=== PATIENT | female | born 1970 | race Hispanic/Latino ===

== ENCOUNTER 2017-05-14 17:17 | Emergency (ER) | payer MEDICAID ==
[~2017-05-14 17:17] MED LIST: OMEP40CA37 PO; OXCA300T46 PO; RISP1TAB89 PO; TRAM-355 PO; TRAZ150T79 PO; TYL3 PO; [UNRECOGNIZED DRUG - OTHER] PO
[2017-05-14] MEDS ORDERED: GUAIFENESIN-CODEINE 5 ML SYRUP ONE (17:46)
[2017-05-14] MEDS ORDERED: DEXAMETHASONE SOD PHOSPHATE 10MG/ML 1ML VIAL ONE (17:46)
[2017-05-14] MEDS ORDERED: IPRATROPIUM/ALBUTEROL SULFATE 3 ML SOLUTION IH ONE (18:04)
== END 2017-05-14 18:37 | disposition home or self-care (01) ==
LOC: EDH 17:17
DX: J20.9 Acute bronchitis, unspecified (principal); Z72.0 Tobacco use
CPT/HCPCS: 94640; 96372; 99283; J1100

== ENCOUNTER 2018-01-15 20:29 | Emergency (ER) | payer MEDICAID ==
[2018-01-15] MEDS ORDERED: DiphenhydrAMINE HCL 50 MG/ML VIAL ONE (21:08)
[2018-01-15] MEDS ORDERED: METOCLOPRAMIDE 10 MG/2 ML VIAL ONE (21:08)
[2018-01-15] MEDS ORDERED: SODIUM CHLORIDE 0.9% 1000ML 1,000 ML IV ONE (21:09)
[2018-01-15 21:13] LABS: BASOPHILS % (AUTO) 0.3 % (0.0-5.0); EOSINOPHILS % (AUTO) 1.8 % (0.0-8.0); HEMATOCRIT 39.7 % (36-48); LYMPHOCYTES % (AUTO) 42.4 % (21.0-51.0); MEAN CORPUSCULAR HEMOGLOBIN 31.8 pg (27.0-33.0); MEAN CORPUSCULAR HGB CONC 33.3 g/dL (32.0-36.0); MEAN CORPUSCULAR VOLUME 95.3 fL (79-99); MONOCYTES % (AUTO) 3.9 % (3.0-13.0); NEUTROPHILS % (AUTO) 51.6 % (40.0-77.0); NUCLEATED RED BLOOD CELLS 0.1 % (0.0-0.19); PLATELET COUNT (AUTO) 172 K/uL (130-400); RED BLOOD CELL COUNT(AUTO) 4.17 MIL/uL (4.00-5.50); RED CELL DISTRIBUTION WIDTH 13.8 % (11.0-15.5); WHITE BLOOD COUNT (AUTO) 6.4 K/uL (4.8-10.8)
[2018-01-15 21:26] LABS: CREATININE 0.7 mg/dL (0.5-1.5); POTASSIUM 4.3 mmol/L (3.5-5.1)
== END 2018-01-15 22:12 | disposition home or self-care (01) ==
LOC: EDH 20:29
DX: R51 Headache (principal); R11.0 Nausea; F41.9 Anxiety disorder, unspecified; F31.9 Bipolar disorder, unspecified; Z90.710 Acquired absence of both cervix and uterus; Z98.890 Other specified postprocedural states; Z72.0 Tobacco use
CPT/HCPCS: 36415; 80048; 85025; 96374; 96375; 99284; J1200; J2765; J7030

== ENCOUNTER 2018-07-25 12:06 | Emergency (ER) | payer MEDICAID ==
[2018-07-25 12:28] LABS: APPEARANCE,URINE Clear (CLEAR); BILIRUBIN,URINE Negative (NEGATIVE); COLOR,URINE Yellow (YELLOW); GLUCOSE, URINE (UA) Negative (NEGATIVE); KETONES,URINE Negative (NEGATIVE); LEUKOCYTE ESTERASE ,URINE Negative (NEGATIVE); NITRATE,URINE Negative (NEGATIVE); OCCULT BLOOD,URINE Nonhemolyzed Trace (NEGATIVE); PH,URINE 7.5 (5.0-8.0); PROTEIN,URINE Negative (NEGATIVE)
[2018-07-25 12:43] LABS: BASOPHILS % (AUTO) 0.4 % (0.0-5.0); EOSINOPHILS % (AUTO) 0.9 % (0.0-8.0); HEMATOCRIT 41.4 % (36-48); LYMPHOCYTES % (AUTO) 24.1 % (21.0-51.0); MEAN CORPUSCULAR HGB CONC 34.3 g/dL (32.0-36.0); MEAN CORPUSCULAR VOLUME 90.4 fL (79-99); MONOCYTES % (AUTO) 4.1 % (3.0-13.0); NEUTROPHILS % (AUTO) 70.5 % (40.0-77.0); NUCLEATED RED BLOOD CELLS 0.1 % (0.0-0.19); PLATELET COUNT (AUTO) 254 K/uL (130-400); RED BLOOD CELL COUNT(AUTO) 4.58 MIL/uL (4.00-5.50); RED CELL DISTRIBUTION WIDTH 12.8 % (11.0-15.5); WHITE BLOOD COUNT (AUTO) 8.4 K/uL (4.8-10.8)
[2018-07-25 12:52] LABS: BACTERIA,URINE Few /HPF (None Seen); WBC,URINE 0-1 /HPF (0-1)
[2018-07-25 12:52] LABS: CREATININE 0.7 mg/dL (0.5-1.5); POTASSIUM 4.4 mmol/L (3.5-5.1)
[2018-07-25 12:53] LABS: MUCUS,URINE Few LPF (None Seen)
[2018-07-25] MEDS ORDERED: ONDANSETRON HCL 4 MG/2 ML VIAL ONE (12:53)
[2018-07-25] MEDS ORDERED: MORPHINE SULFATE 2 MG/ML 1ML SYG ONE (12:53)
[2018-07-25 12:57] LABS: ALBUMIN 3.9 g/dL (3.5-5.0); BILIRUBIN,TOTAL 0.5 mg/dL (0.2-1.0)
[2018-07-25] MEDS ORDERED: IOHEXOL-350 75 ML VIAL IV ONE (12:59)
[2018-07-25 13:05] LABS: AMPHET/METH SCREEN,URINE NEGATIVE (NEGATIVE); BARBITURATE SCREEN, URINE NEGATIVE (NEGATIVE); BENZODIAZEPINES SCREEN,URINE NEGATIVE (NEGATIVE); CANNABINOID SCREEN,URINE NEGATIVE (NEGATIVE); COCAINE SCREEN,URINE NEGATIVE (NEGATIVE); OPIATE SCREEN,URINE NEGATIVE (NEGATIVE); PHENCYCLIDINE SCREEN,URINE NEGATIVE (NEGATIVE)
== END 2018-07-25 14:18 | disposition home or self-care (01) ==
LOC: EDH 12:06
DX: K59.00 Constipation, unspecified (principal); R10.31 Right lower quadrant pain; F32.9 Major depressive disorder, single episode, unspecified; F41.9 Anxiety disorder, unspecified; Z90.710 Acquired absence of both cervix and uterus; Z98.890 Other specified postprocedural states; Z72.0 Tobacco use
CPT/HCPCS: 36415; 74177; 80053; 80305; 81001; 85025; 93005; 96374; 96375; 99285; J2405; Q9967

== ENCOUNTER 2018-09-10 23:30 | Emergency (ER) | payer MEDICAID ==
[2018-09-11] MEDS ORDERED: KETOROLAC TROMETHAMINE 30MG/ML ONE (00:48)
[2018-09-11] MEDS ORDERED: SODIUM CHLORIDE 0.9% 1000ML 1,000 ML IV ONE (00:49)
[2018-09-11 00:55] LABS: BASOPHILS % (AUTO) 0.6 % (0.0-5.0); EOSINOPHILS % (AUTO) 1.4 % (0.0-8.0); HEMATOCRIT 38.1 % (36-48); LYMPHOCYTES % (AUTO) 36.3 % (21.0-51.0); MEAN CORPUSCULAR HEMOGLOBIN 30.4 pg (27.0-33.0); MEAN CORPUSCULAR VOLUME 89.3 fL (79-99); NEUTROPHILS % (AUTO) 56.7 % (40.0-77.0); PLATELET COUNT (AUTO) 268 K/uL (130-400); RED BLOOD CELL COUNT(AUTO) 4.27 MIL/uL (4.00-5.50); RED CELL DISTRIBUTION WIDTH 13.5 % (11.0-15.5); WHITE BLOOD COUNT (AUTO) 7.4 K/uL (4.8-10.8)
[2018-09-11 01:01] LABS: APPEARANCE,URINE Clear (CLEAR); BILIRUBIN,URINE Negative (NEGATIVE); COLOR,URINE Yellow (YELLOW); GLUCOSE, URINE (UA) Negative (NEGATIVE); KETONES,URINE Negative (NEGATIVE); LEUKOCYTE ESTERASE ,URINE Negative (NEGATIVE); NITRATE,URINE Negative (NEGATIVE); OCCULT BLOOD,URINE Negative (NEGATIVE); PROTEIN,URINE Negative (NEGATIVE)
[2018-09-11 01:11] LABS: BILIRUBIN,TOTAL 0.5 mg/dL (0.2-1.0); CREATININE 0.7 mg/dL (0.5-1.5); TOTAL PROTEIN, SERUM 6.6 g/dL (6.0-8.3)
[2018-09-11] MEDS ORDERED: IOHEXOL-350 75 ML VIAL IV ONE (01:17)
[2018-09-11] MEDS ORDERED: LEVOFLOXACIN 500 MG/D5W 100 ML 100 ML ONE (02:20)
[2018-09-11] MEDS ORDERED: METRONIDAZOLE 500 MG TABLET ONE (02:20)
[2018-09-11] MEDS ORDERED: METRONIDAZOLE 500MG/100ML BAG 100 ML ONE (02:25)
== END 2018-09-11 02:49 | disposition home or self-care (01) ==
LOC: EDH 23:30
DX: K57.92 Diverticulitis of intestine, part unspecified, without perforation or abscess without bleeding (principal); F32.9 Major depressive disorder, single episode, unspecified; F41.9 Anxiety disorder, unspecified; Z72.0 Tobacco use; Z90.710 Acquired absence of both cervix and uterus; Z98.890 Other specified postprocedural states
CPT/HCPCS: 36415; 74177; 80053; 81003; 82550; 83605; 83690; 85025; 96365; 96375; 99285; J1885; J1956; J3490; J7030; Q9967

== ENCOUNTER 2019-01-10 21:26 | Emergency (ER) | payer MEDICAID ==
[~2019-01-10 21:26] MED LIST changes: +OMEP40CA13 PO; -OMEP40CA37 PO
[2019-01-10 21:56] LABS: APPEARANCE,URINE Clear (CLEAR); BASOPHILS % (AUTO) 0.3 % (0.0-5.0); BILIRUBIN,URINE Negative (NEGATIVE); COLOR,URINE Dark Yellow (YELLOW); EOSINOPHILS % (AUTO) 1.4 % (0.0-8.0); GLUCOSE, URINE (UA) Negative (NEGATIVE); HEMATOCRIT 39.5 % (36-48); KETONES,URINE Negative (NEGATIVE); LEUKOCYTE ESTERASE ,URINE Negative (NEGATIVE); LYMPHOCYTES % (AUTO) 47.2 % (21.0-51.0); MEAN CORPUSCULAR HEMOGLOBIN 30.2 pg (27.0-33.0); MEAN CORPUSCULAR HGB CONC 33.6 g/dL (32.0-36.0); MEAN CORPUSCULAR VOLUME 89.8 fL (79-99); MONOCYTES % (AUTO) 6.6 % (3.0-13.0); NEUTROPHILS % (AUTO) 44.5 % (40.0-77.0); NITRATE,URINE Negative (NEGATIVE); NUCLEATED RED BLOOD CELLS 0.1 % (0.0-0.19); OCCULT BLOOD,URINE Trace (NEGATIVE); PH,URINE 5.5 (5.0-8.0); PLATELET COUNT (AUTO) 234 K/uL (130-400); PROTEIN,URINE Negative (NEGATIVE); RED CELL DISTRIBUTION WIDTH 13.4 % (11.0-15.5); WHITE BLOOD COUNT (AUTO) 6.2 K/uL (4.8-10.8)
[2019-01-10 22:03] LABS: BACTERIA,URINE Rare /HPF (None Seen); WBC,URINE 0-1 /HPF (0-1)
[2019-01-10 22:04] LABS: MUCUS,URINE Few LPF (None Seen); SQUAMOUS EPITHELIAL CELL,UR Few /HPF (0-2)
[2019-01-10 22:05] LABS: YEAST,URINE BUDDING Rare /HPF (None Seen)
[2019-01-10 22:22] LABS: INR 0.93 (0.85-1.15); PARTIAL THROMBOPLASTIN TIME 28.2 SEC (26.3-35.5); PROTHROMBIN TIME 9.8 SEC (9.6-11.6)
[2019-01-10] MEDS ORDERED: METOCLOPRAMIDE 10 MG/2 ML VIAL ONE (22:43)
[2019-01-10] MEDS ORDERED: FAMOTIDINE/PF 20 MG/2 ML VIAL IV ONE (22:44)
[2019-01-10] MEDS ORDERED: SODIUM CHLORIDE 0.9% 1000ML 1,000 ML IV ONE (22:44)
[2019-01-10 23:01] LABS: CREATININE 0.8 mg/dL (0.5-1.5); POTASSIUM 4.3 mmol/L (3.5-5.1)
[2019-01-10 23:06] LABS: ALBUMIN 4.5 g/dL (3.5-5.0); BILIRUBIN,TOTAL 0.4 mg/dL (0.2-1.0); TOTAL PROTEIN, SERUM 7.5 g/dL (6.0-8.3)
[2019-01-10] MEDS ORDERED: IOHEXOL-350 75 ML VIAL IV ONE (23:07)
[2019-01-10] MEDS ORDERED: KETOROLAC TROMETHAMINE 30MG/ML ONE (23:13)
[2019-01-11] MEDS ORDERED: DiphenhydrAMINE HCL 50 MG/ML VIAL ONE (00:30)
[2019-01-11 00:42] LABS: AMPHET/METH SCREEN,URINE NEGATIVE (NEGATIVE); BARBITURATE SCREEN, URINE NEGATIVE (NEGATIVE); BENZODIAZEPINES SCREEN,URINE NEGATIVE (NEGATIVE); CANNABINOID SCREEN,URINE NEGATIVE (NEGATIVE); COCAINE SCREEN,URINE NEGATIVE (NEGATIVE); OPIATE SCREEN,URINE NEGATIVE (NEGATIVE); PHENCYCLIDINE SCREEN,URINE NEGATIVE (NEGATIVE)
== END 2019-01-11 00:49 | disposition home or self-care (01) ==
LOC: EDH 21:26
DX: E86.9 Volume depletion, unspecified (principal); R10.31 Right lower quadrant pain; F41.9 Anxiety disorder, unspecified; F31.9 Bipolar disorder, unspecified; Z90.710 Acquired absence of both cervix and uterus; Z98.890 Other specified postprocedural states
CPT/HCPCS: 36415; 74177; 80053; 80305; 81001; 83605; 83690; 85025; 85610; 85730; 96361; 96374; 96375; 99285; J1200; J1885; J2765; J3490; J7030; Q9967

== ENCOUNTER 2024-12-14 12:39 | Emergency (ER) | payer MEDICAID ==
[~2024-12-14] VITALS: Ht 147.3 cm; Wt 59.4 kg
[~2024-12-14 12:39] MED LIST changes: -OMEP40CA13 PO; +OMEP40CA21 PO; -TRAM-355 PO; +TRAM-543 PO
--- NOTE | 2024-12-14 12:50 | ERN ---
ED Note History of Present Illness Stated Complaint: LT BREAST PAIN Chief Complaint: Breast Problem Time Seen by MD: 12:43 Dictation: PATIENT IS A 54-YEAR-OLD FEMALE COMING IN TODAY WITH LEFT LATERAL BREAST PAIN THAT IS SPREADING TO HER ARM PIT ONSET WAS LAST MONDAY WHEN SHE TOOK HER BRA. NO NIPPLE DID SWELLING NO SKIN CHANGES NO FEVER NO CHILLS. SHE HAS NOT BEEN TO SEE HER PRIMARY CARE DOCTOR. Allergies: Coded Allergies: No Known Allergies (Unverified Allergy, Unknown, 07/10/14) No Known Drug Allergies (Unverified Allergy, Unknown, 01/11/19) Home Meds Reported Medications Omeprazole (Omeprazole) 40 Mg Capsule.dr, 40 MG PO AM, CAP 08/04/14 Acetaminophen with Codeine (Tylenol with Codeine #3) 1 Tab Tab, 1 TAB PO TID, TAB 08/01/14 Tramadol HCl/Acetaminophen (Tramadol-Acetaminophn 37.5-325) 1 Each Tablet, 1 EACH PO TID, TAB 08/01/14 Risperidone (Risperdal) 1 Mg Tablet, 1 MG PO BID, TAB 07/11/14 Trazodone HCl (Trazodone HCl) 150 Mg Tablet, 150 MG PO HS, TAB 07/11/14 [Vistaril Pamoate] No Conflict Check, 50 MG PO TID 07/11/14 Oxcarbazepine (Trileptal) 300 Mg Tablet, 300 MG PO BID, TAB 07/11/14 Past Medical History Past Medical History: Bipolar, Hypertension Surgical History: None History: Not Applicable RN Note Reviewed/Agreed w/PFSH: Yes Review of System Dictation CONSTITUTIONAL: NEGATIVE EXCEPT FOR HPI HEAD/FACE: NEGATIVE EXCEPT FOR HPI EENT: NEGATIVE EXCEPT FOR HPI RESPIRATORY: NEGATIVE EXCEPT FOR HPI LEFT BREAST PAIN LATERAL GASTROINTESTINAL/ABDOMINAL: NEGATIVE EXCEPT FOR HPI GENITOURINARY: NEGATIVE EXCEPT FOR HPI MUSCULOSKELETAL: NEGATIVE EXCEPT FOR HPI INTEGUMENTARY: NEGATIVE EXCEPT FOR HPI NEUROLOGICAL/PSYCH: NEGATIVE EXCEPT FOR HPI HEMATOLOGIC/LYMPHATIC: NEGATIVE EXCEPT FOR HPI ALL SYSTEMS NEGATIVE, EXCEPT NOTED ABOVE. 13 POINT REVIEW OF SYSTEMS ASSESSED AND ALL NEGATIVE EXCEPT FOR ABOVE. Initial Vital Sign VS Vital Signs Date Time Temp Pulse Resp B/P (MAP) Pulse Ox O2 Delivery O2 Flow Rate FiO2 12/14/24 12:40 98.4 62 20 119/73 99 Room Air 12/14/24 12:56 0 21 Physical Exam Dictation VITAL SIGNS REVIEWED RN IN ROOM WITH THE EXAM IN TRIAGE. GENERAL APPEARANCE: ALERT, ORIENTED X 3, N MODERATE ACUTE DISTRESS, WELL DEVELOPED, NOURISHED. HEAD AND FACE: NON-TRAUMATIC. EYES: PERRL, PINK CONJUNCTIVAS, EYELID NO TRAUMA, ANTERIOR CHAMBER WITH ARCUS SENILIS. EARS: PINNAS INTACT AND NO SIGNS OF TRAUMA OR ERYTHEMA EAR CANALS CLEAR AND NO DISCHARGE TM NO ERYTHEMA NOSE: NO DISCHARGE, NO BLEEDING. OROPHARYNX: MOUTH NORMAL, TONGUE PINK, PHARYNX CLEAR,NO ERYTHEMA, TONSILS NO EXUDATES, NO ABSCESSES NOTED, MUCOUS MEMBRANE MOIST NECK: SUPPLE, CHEST:NO TENDERNESS, NO CREPITUS, NO PARADOXICAL MOVEMENT, NO RETRACTIONS NO DIMPLING OR CAN CHANGES. EXTENDS TO TAIL OF SAEZ LUNGS:CLEAR, WELL-VENTILATED, SYMMETRIC, NO RALES, NO WHEEZING, NO RHONCHI, NO STRIDOR, GOOD BREATH SOUNDS BILATERALLY HEART: REGULAR RATE, REGULAR RHYTHM, NO MURMUR, NO GALLOPS VASCULAR: NO PERIPHERAL EDEMA, ABDOMEN: SOFT, POSITIVE BOWEL SOUNDS, NONDISTENDED, NO GUARDING, NONTENDER, NO REBOUND, NO MASSES NO HEPATOMEGALY, NO SPLENOMEGALY, NO BENNETT'S SIGN, NO HERNIAS. RECTAL: DEFERRED GENITAL: DEFERRED NEUROLOGICAL: NORMAL SPEECH, MOTOR FUNCTION INTACT, SENSORY FUNCTION INTACT MUSCULOSKELETAL: NECK NONTENDER, FULL RANGE OF MOTION, BACK NONTENDER, FULL RANGE OF MOTION, EXTREMITIES: NONTENDER, FULL RANGE OF MOTION SKIN: COLOR PINK, DRY, NO TURGOR, NO RASH, NO LACERATIONS, NO ABRASIONS, NO CONTUSIONS. LYMPHATIC: DEFERRED Results (Laboratory/Radiology) Laboratory/Radiology 1505 ULTRASOUND DEMONSTRATES LESIONS TO THE 3 O'CLOCK POSITION OF LEFT BREAST. Labs Reviewed?: Yes ED Course ED Course Orders Procedure Category Date Status Time Ibuprofen 800 Mg Tab PHA 12/14/24 In Process (Motrin) 13:00 Us Breast Limited US 12/14/24 Taken Unilateral 12:45 Current Medications Medications (Trade) Dose Ordered Sig/Roberta Route PRN Reason Start Time Stop Time Status Last Admin Dose Admin Ibuprofen (moTRIN) 800 mg ONCE PO 12/14/24 13:00 12/14/24 17:00 12/14/24 13:31 Vital Signs Date Time Temp Pulse Resp B/P (MAP) Pulse Ox O2 Delivery O2 Flow Rate FiO2 12/14/24 14:36 98.1 64 16 126/66 98 Room Air* 0 21 12/14/24 12:56 98.1 60 16 120/70 98 Room Air* 0 21 12/14/24 12:40 98.4 62 20 119/73 99 Room Air 1505/DISCUSSED ULTRASOUND FINDINGS WITH PATIENT. SHE DEFERRED A MORE EXTENSIVE EXAM OF HER BREASTS. PATIENT DISCHARGED HOME WITH THE NAME OF DR. PORTIA YUEN PAIN MEDICINE TOLD TO FOLLOW UP WITH HIM NEXT WEEK. Medical Decision Making MDM MEDICAL DECISION-MAKING BASED ON BASIC EXAMINATION LEFT BREAST AND ULTRASOUND. PAIN WAS MANAGED WITH IBUPROFEN ULTRASOUND DEMONSTRATES TWO SMALL CYST-LIKE LESIONS TO LEFT BREAST PATIENT IS AWARE THIS AND WE WILL BE REFERRED TO SURGERY. DX & DISP Disposition: Discharge Departure Impression: Primary Impression: Cyst, breast Condition: Stable Scripts Ibuprofen (Ibuprofen) 600 Mg Tablet 600 MG PO Q6H PRN for PAIN, #30 TAB Prov: JALIL COOK CONCRETE FINISHING MACHINE OPERATOR 12/14/24 Additional Instructions: FOLLOW-UP WITH PRIMARY CARE PROVIDER IN 1 TO 2 DAYS. TAKE MEDICATIONS DIREC SHANAE HERE IN THE EMERGENCY ROOM. OKAY TO CONTINUE HOME MEDICATIONS UNLESS OTHERWISE DISCUSSED DURING YOUR VISIT IN THE EMERGENCY ROOM TODAY. RETURN TO YOUR NEAREST EMERGENCY ROOM IF SYMPTOMS WORSEN OR IF THERE IS NO IMPROVEMENT. CALL 911 IF YOU NEED IMMEDIATE ASSISTANCE. TAKE TYLENOL OR MOTRIN [id number] NEEDED AND IF NO CONTRAINDICATIONS ARE PRESENT. INCREASE ORAL HYDRATION. A WOUND CULTURE OR URINE CULTURE WAS ORDERED HERE IN THE EMERGENCY ROOM DEPARTMENT PLEASE FOLLOW-UP WITH PRIMARY CARE PROVIDER AND ADVISE THEM TO GET REPEAT PORTS FROM OUR FACILITY. IF YOU HAD ANY LOLY WRAP/SPLINTS THAT WERE APPLIED HERE, PLEASE DO NOT REMOVE THEM UNTIL YOU SEE YOUR PRIMARY CARE OR SPECIALTY. TAKE IBUPROFEN WITH FOOD NEEDED FOR PAIN. FOLLOW UP WITH GENERAL SURGEON, CALL FOR AN APPOINTMENT ON MONDAY. Referrals: LAURA KITCHEN MD (PCP) PORTIA YUEN MD Time of Disposition: 15:08 I have reviewed the case, and I agree with, Diagnosis and Plan JALIL COOK NP Dec 14, 2024 12:50
[2024-12-14 14:36] VITALS: BP 126/66; PULSE 64; RESP 16; TEMP 98.1; O2SAT 98
[2024-12-14] MEDS ORDERED: IBUP-1492 PO (15:09)
--- NOTE | 2024-12-14 15:41 | HMCIMG ---
Examination: Left breast ultrasound limited Clinical history: Left lateral breast tenderness and pain Comparison: None Findings: Grayscale and color ultrasound examination of the upper outer aspect of the left breast submitted. There is a 0.4 x 0.4 x 0.4 cm cyst, and a 0.3 x 0.2 x 0.3 cm fatty/hyperechoic structure within the left upper quadrant of the left breast. IMPRESSION: 1. There is a 0.4 x 0.4 x 0.4 cm cyst, and a 0.3 x 0.2 x 0.3 cm fatty/hyperechoic structure within the left upper quadrant of the left breast. BI-RADS 0: Recommend correlation with diagnostic mammography for further evaluation. /[place]
== END 2024-12-14 15:17 | disposition home or self-care (01) ==
LOC: EDH 12:39
DX: N60.02 Solitary cyst of left breast (principal); F31.9 Bipolar disorder, unspecified; I10 Essential (primary) hypertension; Z79.891 Long term (current) use of opiate analgesic; Z79.899 Other long term (current) drug therapy
CPT/HCPCS: 76642; 99284

== ENCOUNTER → 2025-01-06 | Outpatient (CLI) | payer MEDICAID ==
[~2025-01-06] MED LIST changes: +IBUP-1492 PO
--- NOTE | 2025-01-07 09:35 | HMCIMG ---
Left BREAST ULTRASOUND: Follow-up for ultrasound performed on 12/14/2024. Finding: Real-time examination of the [right/left] breast demonstrates heterogeneous echotexture throughout the breast without evidence of focal solid masses. The left breast has a cyst which was seen before at 1:00 measuring 0.3 x 0.4 x 0.3 cm. There is no solid hypoechoic lesion seen. IMPRESSION: Small cyst seen in left breast at 1:00. I would recommend annual mammography with tomography with bilateral breast sonogram. FINAL ASSESSMENT: ACR: BI-RAD- 2. Benign: Also a negative assessment; finding(s) benign abnormalities. Management: Routine mammography screening. Likelihood of Cancer: Essentially 0% likelihood of malignancy.
--- NOTE | 2025-01-07 09:38 | HMCIMG ---
DIGITAL both breasts DIAGNOSTIC MAMMOGRAM Technique: The digital mammographic examination of bilateral breasts in craniocaudal, mediolateral oblique views along with CAD was obtained. History: This is a 54 years year-old female for diagnostic mammogram. Patient has no family history of breast cancer. Patient is complaining of lump in the left breast. Reference:Baseline mammogram. Breast composition: Breast composition B: There are scattered areas of fibroglandular density. Finding: The digital mammographic examination of both breasts in craniocaudal and mediolateral oblique view along with CAD demonstrates mostly involutional fatty changes with some residual fibroglandular stromal elements. In the left breast and upper outer quadrant there is a small lesion seen which appears to be a cyst possibly an old cyst which also a ultrasound confirmed to be a cyst.. There is no evidence of any dendritic mass, cluster microcalcification or architectural distortion. The retromammary fat appears to be normal. IMPRESSION: NO RADIOGRAPHIC EVIDENCE OF MALIGNANT CHANGES. WE WOULD RECOMMEND ANNUAL FOLLOW UP WITH TOMOSYNTHESIS UNLESS OTHERWISE CLINICALLY INDICATED. FINAL ASSESSMENT: ACR: BI-RAD- 2. Benign: Also a negative assessment; finding(s) benign abnormalities. Management: Routine mammography screening. Likelihood of Cancer: Essentially 0% likelihood of malignancy. NOTE: IF A WORK-UP OF THIS PATIENT LEADS TO A BIOPSY, PLEASE FORWARD A COPY OF THE PATHOLOGY REPORT TO OUR OFFICE REQUIRED BY [employer] JANUARY 08, 1994. A NEGATIVE MAMMOGRAM SHOULD NOT PRECLUDE BIOPSY OF A CLINICALLY PALPABLE SUSPICIOUS MASS, 10% OF BREAST CANCERS ARE MAMMOGRAPHICALLY OCCULT. THIS MAMMOGRAPHY FACILITY IS FULLY ACCREDITED BY THE [employer]OD AND [employer]UG [employer]ATION (FDA). THANK YOU FOR THIS REFERRAL.
== END | disposition home or self-care (01) ==
LOC: RAH 09:52
PROVIDERS: ATTEND Family Medicine
DX: N60.02 Solitary cyst of left breast (principal); N63.21 Unspecified lump in the left breast, upper outer quadrant; R92.323 Mammographic fibroglandular density, bilateral breasts; R92.332 Mammographic heterogeneous density, left breast; N64.4 Mastodynia
CPT/HCPCS: 76641; 77066